=== PATIENT | male | born 1955 | race African-American/Black ===

== ENCOUNTER 2018-05-26 16:54 | Emergency (ER) | payer MEDICAID ==
[~2018-05-26] VITALS: Ht 167.6 cm; Wt 94.1 kg
[~2018-05-26 16:54] MED LIST: AMLO-512 PO; ASPI-556 PO; ATOR20TA86 PO; CLON.2 PO; DOXA2TAB PO; FURO20 PO; GABA-533 PO; MELO-107 PO; OMEP20 PO; PRED20 PO
[2018-05-26] MEDS ORDERED: CHL25 PO (17:03)
[2018-05-26 18:19] LABS: APPEARANCE,URINE CLEAR (CLEAR); BILIRUBIN,URINE NEGATIVE (NEGATIVE); GLUCOSE, URINE (UA) NEGATIVE (NEGATIVE); KETONES,URINE NEGATIVE (NEGATIVE); LEUKOCYTE ESTERASE ,URINE NEGATIVE (NEGATIVE); NITRATE,URINE NEGATIVE (NEGATIVE); OCCULT BLOOD,URINE NEGATIVE (NEGATIVE); PROTEIN,URINE NEGATIVE (NEGATIVE); UROBILINOGEN,URINE 0.2 mg/dL (<=1.0)
[2018-05-26 19:12] VITALS: BP 130/73
== END 2018-05-26 19:13 | disposition home or self-care (01) ==
LOC: EMS 16:59
DX: R20.2 Paresthesia of skin (principal); M79.605 Pain in left leg; M79.604 Pain in right leg; M79.89 Other specified soft tissue disorders; I10 Essential (primary) hypertension; F17.210 Nicotine dependence, cigarettes, uncomplicated; Z88.0 Allergy status to penicillin; Z88.8 Allergy status to other drugs, medicaments and biological substances; Z91.018 Allergy to other foods
CPT/HCPCS: 93970; 99285

== ENCOUNTER 2019-07-04 22:36 | Emergency (ER) | payer MEDICAID ==
[~2019-07-04] VITALS: Ht 167.6 cm; Wt 95.5 kg
[~2019-07-04 22:36] MED LIST changes: -AMLO-512 PO; +AMLO10TA7 PO; +CHL25 PO
[2019-07-05] MEDS ORDERED: PredniSONE 20 MG TABLET PO ONE
[2019-07-05] MEDS ORDERED: IPRATROPIUM BROMIDE 0.5 MG/2.5 ML NEB SOLUTION NEB ONE
[2019-07-05] MEDS ORDERED: ALBUTEROL SULFATE 2.5 MG/0.5 ML NEB SOLUTION NEB ONE
[2019-07-05 00:25] LABS: BASOPHILS % (AUTO) 1.1 % (0.0-2.0); EOSINOPHILS % (AUTO) 1.7 % (1.0-6.0); HEMATOCRIT 41.9 % (41-53); HEMOGLOBIN 13.8 g/dL (13.5-17.5); LYMPHOCYTES # (AUTO) 3.5 K/uL (1.0-4.8); LYMPHOCYTES % (AUTO) 53.8 % (22.0-44.0); MEAN CORPUSCULAR HEMOGLOBIN 31.5 pg (26.0-34.0); MEAN CORPUSCULAR HGB CONC 32.9 G/dL (31.0-37.0); MEAN CORPUSCULAR VOLUME 96 fL (80-100); MONOCYTES # (AUTO) 0.4 K/uL (0.1-1.0); MONOCYTES % (AUTO) 6.8 % (2.0-9.0); NEUTROPHILS # (AUTO) 2.4 K/uL (1.8-7.7); NEUTROPHILS % (AUTO) 36.6 % (40.0-70.0); PLATELET COUNT (AUTO) 255 K/uL (150-450); RED BLOOD CELL COUNT(AUTO) 4.38 MIL/uL (4.50-5.90)
[2019-07-05 00:30] LABS: ANION GAP 12 mmol/L (8-16); CALCIUM, TOTAL 9.9 mg/dL (8.8-10.5); CARBON DIOXIDE 31 mmol/L (22-29); CHLORIDE 100 mmol/L (98-107); CREATININE 1.11 mg/dL (0.60-1.30); GLOMERULAR FILTR. RATE CALC > 60 mL/min (>60); GLUCOSE,RANDOM 90 mg/dL (70-110); POTASSIUM 3.3 mmol/L (3.5-5.1); SODIUM SERUM 143 mmol/L (136-145); UREA NITROGEN, BLOOD 8 mg/dL (7-18)
[2019-07-05 00:37] LABS: ALANINE AMINOTRANSFERASE 23 U/L (12-78); ALBUMIN 4.1 g/dL (3.4-5.0); ALKALINE PHOSPHATASE 95 U/L (46-116); ASPARTATE AMINOTRANSFERASE 24 U/L (15-37); BILIRUBIN,TOTAL 0.3 mg/dL (0.1-1.0); TOTAL PROTEIN, SERUM 8.5 g/dL (6.4-8.2)
[2019-07-05 00:43] LABS: B-TYPE NATRIURETIC PEPTIDE 31 pg/mL (0-100)
[2019-07-05] MEDS ORDERED: IOVERSOL 350 MG/ML 150 ML VIAL ONE (01:01)
[2019-07-05] MEDS ORDERED: KETOROLAC TROMETHAMINE 30 MG/ML VIAL IVP ONE (01:15)
[2019-07-05 03:37] VITALS: BP 142/88
== END 2019-07-05 03:58 | disposition home or self-care (01) ==
LOC: EMS 22:40
DX: G89.29 Other chronic pain (principal); K80.20 Calculus of gallbladder without cholecystitis without obstruction; R16.0 Hepatomegaly, not elsewhere classified; N28.1 Cyst of kidney, acquired; J45.901 Unspecified asthma with (acute) exacerbation; I10 Essential (primary) hypertension; F17.210 Nicotine dependence, cigarettes, uncomplicated; Z88.0 Allergy status to penicillin; Z88.8 Allergy status to other drugs, medicaments and biological substances; Z91.018 Allergy to other foods; Z79.899 Other long term (current) drug therapy; Z79.82 Long term (current) use of aspirin
CPT/HCPCS: 36415; 71045; 71275; 80053; 83880; 85025; 85379; 93970; 94640; 96374; 99284; J1885; J7512; Q9967

== ENCOUNTER 2019-07-05 10:38 | Inpatient (IN) | payer MEDICAID ==
[~2019-07-05] VITALS: Ht 167.6 cm; Wt 97.4 kg
[2019-07-05 11:15] LABS: GLUCOSE,POINT OF CARE 126 MG/DL (70-110)
[2019-07-05] MEDS ORDERED: ALBUTEROL SULFATE 5 MG/ML 20 ML NEB SOLN [BULK] NEB ONE (11:15)
[2019-07-05] MEDS ORDERED: IPRATROPIUM BROMIDE 0.5 MG/2.5 ML NEB SOLUTION NEB ONE (11:15)
[2019-07-05 11:45] LABS: ANION GAP 17 mmol/L (8-16); BASOPHILS % (AUTO) 0.2 % (0.0-2.0); CALCIUM, TOTAL 10.4 mg/dL (8.8-10.5); CARBON DIOXIDE 27 mmol/L (22-29); CHLORIDE 96 mmol/L (98-107); CREATININE 1.03 mg/dL (0.60-1.30); EOSINOPHILS % (AUTO) 0 % (1.0-6.0); GLOMERULAR FILTR. RATE CALC > 60 mL/min (>60); GLUCOSE,RANDOM 113 mg/dL (70-110); HEMATOCRIT 42.4 % (41-53); HEMOGLOBIN 14.2 g/dL (13.5-17.5); LYMPHOCYTES % (AUTO) 26.2 % (22.0-44.0); MEAN CORPUSCULAR HEMOGLOBIN 32.2 pg (26.0-34.0); MEAN CORPUSCULAR HGB CONC 33.5 G/dL (31.0-37.0); MEAN CORPUSCULAR VOLUME 96 fL (80-100); MONOCYTES # (AUTO) 0.2 K/uL (0.1-1.0); MONOCYTES % (AUTO) 4.9 % (2.0-9.0); NEUTROPHILS # (AUTO) 2.6 K/uL (1.8-7.7); NEUTROPHILS % (AUTO) 68.7 % (40.0-70.0); PLATELET COUNT (AUTO) 245 K/uL (150-450); POTASSIUM 3.2 mmol/L (3.5-5.1); RED BLOOD CELL COUNT(AUTO) 4.42 MIL/uL (4.50-5.90); RED CELL DISTRIBUTION WIDTH 15.6 % (11.5-14.5); SODIUM SERUM 140 mmol/L (136-145); UREA NITROGEN, BLOOD 5 mg/dL (7-18)
[2019-07-05] MEDS ORDERED: ONDANSETRON HCL 4 MG/2 ML VIAL ONE (11:49)
[2019-07-05] MEDS ORDERED: MORPHINE SULFATE 4 MG/ML SYRINGE ONE (11:50)
[2019-07-05] MEDS ORDERED: MORPHINE SULFATE 4 MG/ML SYRINGE IVP ONE (12:00)
[2019-07-05] MEDS ORDERED: ONDANSETRON HCL 4 MG/2 ML VIAL IVP ONE (12:00)
[2019-07-05 12:07] LABS: B-TYPE NATRIURETIC PEPTIDE 59 pg/mL (0-100)
[2019-07-05 12:13] LABS: ALANINE AMINOTRANSFERASE 22 U/L (12-78); ALBUMIN 4.2 g/dL (3.4-5.0); ALKALINE PHOSPHATASE 100 U/L (46-116); ASPARTATE AMINOTRANSFERASE 22 U/L (15-37); BILIRUBIN,TOTAL 0.5 mg/dL (0.1-1.0); CREATINE KINASE, TOTAL ONLY 206 U/L (39-308); LIPASE 56 U/L (73-393); TOTAL PROTEIN, SERUM 8.8 g/dL (6.4-8.2)
[2019-07-05] MEDS ORDERED: NITROGLYCERIN 0.4 MG SUBLINGUAL TABLET #25 SL ONE (12:30)
[2019-07-05] MEDS ORDERED: ASPIRIN 325 MG TABLET PO SCH (12:45)
[2019-07-05] MEDS ORDERED: ACETAMINOPHEN 325 MG TABLET PO PRN (12:45)
[2019-07-05] MEDS ORDERED: METOPROLOL TARTRATE 25 MG TABLET PO SCH (12:45)
[2019-07-05] MEDS ORDERED: POTASSIUM CHLORIDE 10% 40 MEQ/30 ML LIQUID UDCUP PO ONE (12:45)
[2019-07-05] MEDS ORDERED: ALBUTEROL SULFATE 2.5 MG/0.5 ML NEB SOLUTION NEB PRN (12:45)
[2019-07-05 13:15] LABS: APPEARANCE,URINE CLEAR (CLEAR); BILIRUBIN,URINE NEGATIVE (NEGATIVE); GLUCOSE, URINE (UA) NEGATIVE (NEGATIVE); KETONES,URINE NEGATIVE (NEGATIVE); LEUKOCYTE ESTERASE ,URINE NEGATIVE (NEGATIVE); NITRATE,URINE NEGATIVE (NEGATIVE); OCCULT BLOOD,URINE NEGATIVE (NEGATIVE); PROTEIN,URINE SEE CONFIRM (NEGATIVE); UROBILINOGEN,URINE 0.2 mg/dL (<=1.0)
[2019-07-05 13:16] LABS: AMPHET/METH SCREEN,URINE NEGATIVE (NEGATIVE); BARBITURATE SCREEN, URINE NEGATIVE (NEGATIVE); BENZODIAZEPINES SCREEN,URINE NEGATIVE (NEGATIVE); CANNABINOID SCREEN,URINE POSITIVE (NEGATIVE); COCAINE SCREEN,URINE NEGATIVE (NEGATIVE); METHADONE SCREEN, URINE NEGATIVE (NEGATIVE); OPIATE SCREEN,URINE POSITIVE (NEGATIVE); PHENCYCLIDINE SCREEN,URINE NEGATIVE (NEGATIVE)
[2019-07-05] MEDS: ATORVASTATIN CALCIUM 20 MG TABLET PO SCH (13:20)
[2019-07-05 13:26] LABS: BACTERIA,URINE None Seen /HPF (None Seen); RBC,URINE 0-2 /HPF (0-2); SQUAMOUS EPITHELIAL CELL,UR Few /LPF (None Seen); SULFOSALICYLIC ACID,URINE 3+ (Negative); WBC,URINE None Seen /HPF (0-5)
[2019-07-05] MEDS ORDERED: FONDAPARINUX SODIUM 2.5 MG/0.5 ML SYRINGE SQ SCH (13:30)
[2019-07-05 15:54] VITALS: BP 155/91
[2019-07-05] MEDS ORDERED: POTASSIUM CHL 10 MEQ/WATER 50 ML IV PRN (16:00)
[2019-07-05] MEDS ORDERED: POTASSIUM CHLORIDE 20 MEQ ER TABLET PO PRN (16:00)
[2019-07-05] MEDS ORDERED: HEPARIN SODIUM,PORCINE 5,000 UNITS/ML VIAL SQ SCH (16:00)
[2019-07-05] MEDS ORDERED: NITROGLYCERIN 0.4 MG SUBLINGUAL TABLET #25 SL PRN (17:15)
[2019-07-05 20:16] VITALS: BP 145/84
[2019-07-05 20:20] VITALS: BP 148/84
[2019-07-05] MEDS: DOCUSATE SODIUM 100 MG CAPSULE PO SCH (21:10)
[2019-07-05] MEDS: OxyCODONE HCL/ACETAMINOPHEN 5-325 MG TABLET PO PRN (21:10)
[2019-07-05] MEDS: METOPROLOL TARTRATE 25 MG TABLET PO SCH (21:11)
[2019-07-06] VITALS (13 sets, daily range): BP systolic 131–185; BP diastolic 72–105
[2019-07-06] MEDS: FAMOTIDINE 20 MG TABLET PO SCH ×2 (09:00→13:48)
[2019-07-06] MEDS: METOPROLOL TARTRATE 25 MG TABLET PO SCH ×3 (09:00→21:48)
[2019-07-06] MEDS: DOCUSATE SODIUM 100 MG CAPSULE PO SCH ×3 (09:00→21:48)
[2019-07-06] MEDS: ASPIRIN 81 MG CHEWABLE TABLET PO SCH (09:00)
[2019-07-06] MEDS: ATORVASTATIN CALCIUM 20 MG TABLET PO SCH ×2 (09:00→13:48)
[2019-07-06] MEDS: FONDAPARINUX SODIUM 7.5 MG/0.6 ML SYRINGE SQ SCH (09:00)
[2019-07-06] MEDS ORDERED: VERAPAMIL HCL 2.5 MG/ML 2 ML VIAL ONE (10:42)
[2019-07-06] MEDS ORDERED: HEPARIN SODIUM 1000 UNITS/NS 1,000 ML ONE (10:43)
[2019-07-06] MEDS ORDERED: LIDOCAINE/PF 1% 30 ML VIAL ONE (10:43)
[2019-07-06] MEDS ORDERED: IOHEXOL 300 MG/ML 150 ML VIAL ONE (10:43)
[2019-07-06] MEDS ORDERED: NITROGLYCERIN 50 MG/D5% WATER 250 ML ONE (10:43)
[2019-07-06] MEDS ORDERED: SODIUM BICARBONATE 50 MEQ/50 ML VIAL ONE (10:43)
[2019-07-06] MEDS ORDERED: FentaNYL CITRATE-PF 100 MCG/2 ML VIAL ONE (11:22)
[2019-07-06] MEDS ORDERED: MIDAZOLAM HCL 2 MG/2 ML VIAL ONE (11:22)
[2019-07-06] MEDS ORDERED: SODIUM CHLORIDE 0.9% 500 ML IV ONE (11:43)
[2019-07-06] MEDS ORDERED: HEPARIN SODIUM 1000 UNITS/NS 1,000 ML IARTER ONE (11:43)
[2019-07-06] MEDS ORDERED: LIDOCAINE 1% 30 ML/SOD BICARB 8.4% 4 ML SQ ONE (11:45)
[2019-07-06] MEDS ORDERED: VERAPAMIL HCL 2.5 MG/ML 2 ML VIAL IARTER ONE (11:45)
[2019-07-06] MEDS ORDERED: MIDAZOLAM HCL 2 MG/2 ML VIAL IVP ONE (11:45)
[2019-07-06] MEDS ORDERED: FentaNYL CITRATE-PF 100 MCG/2 ML VIAL IVP ONE (11:45)
[2019-07-06] MEDS ORDERED: NITROGLYCERIN/D5W 50 MG/250 ML IV BOTTLE IARTER ONE (11:45)
[2019-07-06] MEDS ORDERED: IOHEXOL 300 MG/ML 150 ML VIAL IARTER ONE (11:45)
[2019-07-06] MEDS ORDERED: POTASSIUM CHL 10 MEQ/WATER 50 ML IV PRN (12:00)
[2019-07-06] MEDS ORDERED: HEPARIN SODIUM,PORCINE 5,000 UNITS/ML VIAL IVP ONE (12:00)
[2019-07-06] MEDS ORDERED: POTASSIUM CHLORIDE 20 MEQ ER TABLET PO PRN (12:00)
[2019-07-06] MEDS ORDERED: IOHEXOL 300 MG/ML 100 ML VIAL IARTER ONE (12:00)
[2019-07-06] MEDS ORDERED: IOHEXOL 300 MG/ML 50 ML VIAL ONE (12:12)
[2019-07-06] MEDS ORDERED: NITROGLYCERIN/D5W 50 MG/250 ML IV BOTTLE ICOR ONE (12:15)
[2019-07-06] MEDS: OxyCODONE HCL/ACETAMINOPHEN 5-325 MG TABLET PO PRN ×2 (13:48→21:48)
[2019-07-07 03:58] VITALS: BP 139/76
[2019-07-07 07:11] VITALS: BP 160/91
[2019-07-07] MEDS ORDERED: LIDOCAINE/PF 1% 30 ML VIAL ONE (07:28)
[2019-07-07] MEDS ORDERED: SODIUM BICARBONATE 50 MEQ/50 ML VIAL ONE (07:29)
[2019-07-07] MEDS ORDERED: IOHEXOL 300 MG/ML 150 ML VIAL ONE (07:29)
[2019-07-07] MEDS ORDERED: HEPARIN SODIUM 1000 UNITS/NS 500 ML ONE (07:29)
[2019-07-07] MEDS ORDERED: ASPIRIN 325 MG TABLET PO ONE (08:45)
[2019-07-07] MEDS ORDERED: TICAGRELOR 90 MG TABLET PO ONE (08:45)
[2019-07-07] MEDS: METOPROLOL TARTRATE 25 MG TABLET PO SCH ×2 (11:19→21:31)
[2019-07-07] MEDS: ATORVASTATIN CALCIUM 20 MG TABLET PO SCH (11:19)
[2019-07-07] MEDS: DOCUSATE SODIUM 100 MG CAPSULE PO SCH ×2 (11:19→21:32)
[2019-07-07] MEDS: FAMOTIDINE 20 MG TABLET PO SCH (11:19)
[2019-07-07] MEDS: ASPIRIN 81 MG CHEWABLE TABLET PO SCH (11:19)
[2019-07-07] MEDS: FONDAPARINUX SODIUM 7.5 MG/0.6 ML SYRINGE SQ SCH (11:20)
[2019-07-07 11:25] VITALS: BP 166/108
[2019-07-07] MEDS: OxyCODONE HCL/ACETAMINOPHEN 5-325 MG TABLET PO PRN ×2 (11:33→19:42)
[2019-07-07 15:15] VITALS: BP 135/82
[2019-07-07 20:51] VITALS: BP 144/94
[2019-07-07] MEDS: MORPHINE SULFATE 2 MG/ML SYRINGE IVP PRN (21:31)
[2019-07-07 23:03] VITALS: BP 139/99
[2019-07-08] VITALS (21 sets, daily range): BP systolic 113–189; BP diastolic 58–114
[2019-07-08] MEDS: ATORVASTATIN CALCIUM 20 MG TABLET PO SCH (08:37)
[2019-07-08] MEDS: ASPIRIN 81 MG CHEWABLE TABLET PO SCH (08:37)
[2019-07-08] MEDS: METOPROLOL TARTRATE 25 MG TABLET PO SCH (08:37)
[2019-07-08] MEDS: DOCUSATE SODIUM 100 MG CAPSULE PO SCH ×2 (08:38→19:57)
[2019-07-08] MEDS: FONDAPARINUX SODIUM 7.5 MG/0.6 ML SYRINGE SQ SCH (08:38)
[2019-07-08] MEDS: FAMOTIDINE 20 MG TABLET PO SCH (08:38)
[2019-07-08] MEDS ORDERED: LIDOCAINE/PF 1% 30 ML VIAL ONE (09:20)
[2019-07-08] MEDS ORDERED: HEPARIN SODIUM 1000 UNITS/NS 1,000 ML ONE (09:20)
[2019-07-08] MEDS ORDERED: SODIUM BICARBONATE 50 MEQ/50 ML VIAL ONE (09:20)
[2019-07-08] MEDS ORDERED: IOHEXOL 300 MG/ML 150 ML VIAL ONE (09:20)
[2019-07-08] MEDS ORDERED: TICAGRELOR 90 MG TABLET ONE (09:55)
[2019-07-08] MEDS ORDERED: NITROGLYCERIN 50 MG/D5% WATER 250 ML ONE (09:58)
[2019-07-08] MEDS ORDERED: IOHEXOL 300 MG/ML 50 ML VIAL ONE (09:58)
[2019-07-08] MEDS ORDERED: VERAPAMIL HCL 2.5 MG/ML 2 ML VIAL ONE (09:58)
[2019-07-08] MEDS ORDERED: FentaNYL CITRATE-PF 100 MCG/2 ML VIAL ONE (10:04)
[2019-07-08] MEDS ORDERED: MIDAZOLAM HCL 2 MG/2 ML VIAL ONE ×2 (10:05→11:17)
[2019-07-08] MEDS ORDERED: HEPARIN SODIUM 1000 UNITS/NS 1,000 ML IARTER ONE (10:14)
[2019-07-08] MEDS ORDERED: SODIUM CHLORIDE 0.9% 500 ML IV ONE (10:14)
[2019-07-08] MEDS ORDERED: LIDOCAINE 1% 30 ML/SOD BICARB 8.4% 4 ML SQ ONE (10:15)
[2019-07-08] MEDS ORDERED: HEPARIN SODIUM,PORCINE 5,000 UNITS/ML VIAL IVP ONE ×3 (10:15→11:00)
[2019-07-08] MEDS ORDERED: IOHEXOL 300 MG/ML 150 ML VIAL IARTER ONE (10:15)
[2019-07-08] MEDS ORDERED: TICAGRELOR 90 MG TABLET PO ONE (10:15)
[2019-07-08] MEDS ORDERED: IOHEXOL 300 MG/ML 50 ML VIAL IARTER ONE (10:15)
[2019-07-08] MEDS ORDERED: FentaNYL CITRATE-PF 100 MCG/2 ML VIAL IVP ONE ×2 (10:30)
[2019-07-08] MEDS ORDERED: MIDAZOLAM HCL 2 MG/2 ML VIAL IVP ONE ×3 (10:30→11:15)
[2019-07-08] MEDS ORDERED: IOHEXOL 300 MG/ML 100 ML VIAL ONE (10:37)
[2019-07-08] MEDS ORDERED: IOHEXOL 300 MG/ML 100 ML VIAL IARTER ONE (10:45)
[2019-07-08] MEDS ORDERED: LABETALOL HCL 5 MG/ML 20 ML VIAL IVP ONE ×2 (10:53→11:00)
[2019-07-08] MEDS ORDERED: NITROGLYCERIN/D5W 50 MG/250 ML IV BOTTLE ICOR ONE ×2 (11:00→11:15)
[2019-07-08] MEDS ORDERED: VERAPAMIL HCL 2.5 MG/ML 2 ML VIAL ICOR ONE ×2 (11:00→11:15)
[2019-07-08] MEDS ORDERED: MORPHINE SULFATE 2 MG/ML SYRINGE ONE (12:14)
[2019-07-08] MEDS: MORPHINE SULFATE 2 MG/ML SYRINGE IVP PRN ×2 (12:15→19:57)
[2019-07-08] MEDS: OxyCODONE HCL/ACETAMINOPHEN 5-325 MG TABLET PO PRN ×2 (14:15→23:17)
[2019-07-08] MEDS: CloNIDine HCL 0.2 MG TABLET PO SCH ×2 (15:45→21:56)
[2019-07-08] MEDS: GABAPENTIN 400 MG CAPSULE PO SCH ×2 (15:50→19:57)
[2019-07-08] MEDS ORDERED: LABETALOL HCL 5 MG/ML 20 ML VIAL IVP PRN (16:00)
[2019-07-08] MEDS: TICAGRELOR 90 MG TABLET PO SCH (19:56)
[2019-07-08] MEDS: ATORVASTATIN CALCIUM 40 MG TABLET PO SCH (19:57)
[2019-07-08] MEDS: DOXAZOSIN MESYLATE 2 MG TABLET PO SCH (19:57)
[2019-07-08] MEDS ORDERED: ATORVASTATIN CALCIUM 20 MG TABLET PO SCH (21:00)
[2019-07-08] MEDS: METOPROLOL TARTRATE 50 MG TABLET PO SCH (21:00)
[2019-07-09] VITALS (7 sets, daily range): BP systolic 114–149; BP diastolic 44–82
[2019-07-09] MEDS: DOCUSATE SODIUM 100 MG CAPSULE PO SCH ×2 (09:00→21:12)
[2019-07-09] MEDS: METOPROLOL TARTRATE 50 MG TABLET PO SCH ×2 (09:00→21:12)
[2019-07-09] MEDS: FONDAPARINUX SODIUM 7.5 MG/0.6 ML SYRINGE SQ SCH (09:09)
[2019-07-09] MEDS: ASPIRIN 81 MG EC TABLET PO SCH (09:09)
[2019-07-09] MEDS: TICAGRELOR 90 MG TABLET PO SCH ×2 (09:09→21:13)
[2019-07-09] MEDS: GABAPENTIN 400 MG CAPSULE PO SCH ×3 (09:10→21:13)
[2019-07-09] MEDS: CHLORTHALIDONE 25 MG TABLET PO SCH (09:10)
[2019-07-09] MEDS: AmLODIPine BESYLATE 10 MG TABLET PO SCH (09:10)
[2019-07-09] MEDS: FUROSEMIDE 20 MG TABLET PO SCH (09:10)
[2019-07-09] MEDS: OMEPRAZOLE 20 MG CAPSULE PO SCH (09:13)
[2019-07-09] MEDS: FAMOTIDINE 20 MG TABLET PO SCH (09:13)
[2019-07-09] MEDS: CloNIDine HCL 0.2 MG TABLET PO SCH ×3 (09:13→21:13)
[2019-07-09] MEDS: MELOXICAM 7.5 MG TABLET PO SCH (09:13)
[2019-07-09] MEDS: MORPHINE SULFATE 2 MG/ML SYRINGE IVP PRN (11:18)
[2019-07-09] MEDS: MAGNESIUM HYDROXIDE SUSPENSION 30 ML UDCUP PO PRN ×2 (13:18→21:15)
[2019-07-09] MEDS ORDERED: ChlorproMAZINE HCL 10 MG TABLET PO PRN (14:45)
[2019-07-09] MEDS: ATORVASTATIN CALCIUM 40 MG TABLET PO SCH (21:13)
[2019-07-09] MEDS: DOXAZOSIN MESYLATE 2 MG TABLET PO SCH (21:13)
[2019-07-10] MEDS: OxyCODONE HCL/ACETAMINOPHEN 5-325 MG TABLET PO PRN ×2 (03:24→18:05)
[2019-07-10 04:21] VITALS: BP 114/59
[2019-07-10 08:20] VITALS: BP 110/55
[2019-07-10 08:45] LABS: BASOPHILS % (AUTO) 1.5 % (0.0-2.0); HEMATOCRIT 37.9 % (41-53); HEMOGLOBIN 12.4 g/dL (13.5-17.5); LYMPHOCYTES # (AUTO) 1.9 K/uL (1.0-4.8); LYMPHOCYTES % (AUTO) 37.7 % (22.0-44.0); MEAN CORPUSCULAR HEMOGLOBIN 32.2 pg (26.0-34.0); MEAN CORPUSCULAR HGB CONC 32.7 G/dL (31.0-37.0); MEAN CORPUSCULAR VOLUME 98 fL (80-100); MONOCYTES # (AUTO) 0.5 K/uL (0.1-1.0); MONOCYTES % (AUTO) 10.8 % (2.0-9.0); NEUTROPHILS # (AUTO) 2.3 K/uL (1.8-7.7); PLATELET COUNT (AUTO) 143 K/uL (150-450); RED BLOOD CELL COUNT(AUTO) 3.85 MIL/uL (4.50-5.90); RED CELL DISTRIBUTION WIDTH 15.3 % (11.5-14.5)
[2019-07-10] MEDS: FONDAPARINUX SODIUM 7.5 MG/0.6 ML SYRINGE SQ SCH (08:51)
[2019-07-10] MEDS: TICAGRELOR 90 MG TABLET PO SCH ×2 (08:51→20:33)
[2019-07-10] MEDS: ASPIRIN 81 MG EC TABLET PO SCH (08:51)
[2019-07-10] MEDS: FUROSEMIDE 20 MG TABLET PO SCH (08:51)
[2019-07-10] MEDS: DOCUSATE SODIUM 100 MG CAPSULE PO SCH ×2 (08:51→20:34)
[2019-07-10] MEDS: FAMOTIDINE 20 MG TABLET PO SCH (08:51)
[2019-07-10] MEDS: OMEPRAZOLE 20 MG CAPSULE PO SCH (08:52)
[2019-07-10] MEDS: MELOXICAM 7.5 MG TABLET PO SCH (08:52)
[2019-07-10] MEDS: CHLORTHALIDONE 25 MG TABLET PO SCH (08:52)
[2019-07-10] MEDS: GABAPENTIN 400 MG CAPSULE PO SCH ×3 (08:52→20:34)
[2019-07-10 08:56] LABS: ANION GAP 6 mmol/L (8-16); CALCIUM, TOTAL 10.2 mg/dL (8.8-10.5); CARBON DIOXIDE 30 mmol/L (22-29); CHLORIDE 98 mmol/L (98-107); CREATININE 1.32 mg/dL (0.60-1.30); GLOMERULAR FILTR. RATE CALC > 60 mL/min (>60); GLUCOSE,RANDOM 101 mg/dL (70-110); SODIUM SERUM 134 mmol/L (136-145); UREA NITROGEN, BLOOD 26 mg/dL (7-18)
[2019-07-10] MEDS: AmLODIPine BESYLATE 10 MG TABLET PO SCH (09:00)
[2019-07-10] MEDS: METOPROLOL TARTRATE 50 MG TABLET PO SCH ×2 (09:00→20:34)
[2019-07-10] MEDS: CloNIDine HCL 0.2 MG TABLET PO SCH ×3 (09:00→20:33)
[2019-07-10 10:59] LABS: ABG CARBOXYHEMOGLOBIN 0.1 % (0.0-1.5); ABG HCO3 26.9 mmol/L (22.0-26.0); ABG METHEMOGLOBIN 0.2 % (0.0-1.5); ABG OXYGEN CONTENT 17.9 mL/dL (15.0-23.0); ABG OXYGEN SATURATION 97.2 % (95.0-98.0); ABG OXYHEMOGLOBIN 96.9 % (94.0-100.0); ABG PCO2 41 mmHg (35-45); ABG PH 7.441 (7.35-7.450); ABG TOTAL HEMOGLOBIN 13.1 G/dL (12.0-18.0); O2 DEVICE,BLOOD GAS CANNULA (ROOM AIR); PO2, ARTERIAL BG 92.8 mmHg (79.0-87.0); SITE, BLOOD GAS RT RADIAL; SOURCE, BLOOD GAS ARTERIAL
[2019-07-10 11:33] VITALS: BP 105/72
[2019-07-10 16:15] VITALS: BP 131/78
[2019-07-10 20:13] VITALS: BP 132/81
[2019-07-10] MEDS: DOXAZOSIN MESYLATE 2 MG TABLET PO SCH (20:33)
[2019-07-10] MEDS: ATORVASTATIN CALCIUM 40 MG TABLET PO SCH (20:34)
[2019-07-10 23:49] VITALS: BP 131/64
[2019-07-11 03:31] VITALS: BP 133/84
[2019-07-11] MEDS: OxyCODONE HCL/ACETAMINOPHEN 5-325 MG TABLET PO PRN (03:56)
[2019-07-11 05:01] VITALS: BP 107/60
[2019-07-11 07:15] VITALS: BP 119/67
[2019-07-11] MEDS: TICAGRELOR 90 MG TABLET PO SCH (08:45)
[2019-07-11] MEDS: FUROSEMIDE 20 MG TABLET PO SCH (08:45)
[2019-07-11] MEDS: FONDAPARINUX SODIUM 7.5 MG/0.6 ML SYRINGE SQ SCH (08:46)
[2019-07-11] MEDS: OMEPRAZOLE 20 MG CAPSULE PO SCH (08:46)
[2019-07-11] MEDS: ASPIRIN 81 MG EC TABLET PO SCH (08:46)
[2019-07-11] MEDS: FAMOTIDINE 20 MG TABLET PO SCH (08:46)
[2019-07-11] MEDS: GABAPENTIN 400 MG CAPSULE PO SCH (08:47)
[2019-07-11] MEDS: MELOXICAM 7.5 MG TABLET PO SCH (08:47)
[2019-07-11] MEDS: CHLORTHALIDONE 25 MG TABLET PO SCH (08:47)
[2019-07-11] MEDS: DOCUSATE SODIUM 100 MG CAPSULE PO SCH (08:47)
[2019-07-11] MEDS: MORPHINE SULFATE 2 MG/ML SYRINGE IVP PRN (08:50)
[2019-07-11] MEDS: CloNIDine HCL 0.2 MG TABLET PO SCH (09:00)
[2019-07-11] MEDS: AmLODIPine BESYLATE 10 MG TABLET PO SCH (09:00)
[2019-07-11] MEDS: METOPROLOL TARTRATE 50 MG TABLET PO SCH (09:00)
[2019-07-11 11:20] VITALS: BP 132/64
[2019-07-11 15:41] VITALS: BP 145/89
[2019-07-11] MEDS ORDERED: GABA-533 PO (16:11)
[2019-07-11] MEDS ORDERED: METO50 PO (16:12)
[2019-07-11] MEDS ORDERED: OMEP20 PO (16:13)
[2019-07-11] MEDS ORDERED: TICA90TA PO (16:13)
[2019-07-11] MEDS ORDERED: ADV250 IH (16:54)
== END 2019-07-11 17:10 | disposition home or self-care (01) | DRG 174 ==
LOC: EMS 10:40 → 5S 14:50 → ICU 07-08 11:48 → 5S 07-09 23:00
PROVIDERS: ADMIT Internal Medicine; ATTEND Internal Medicine
PROC: B2111ZZ Fluoroscopy of Multiple Coronary Arteries using Low Osmolar Contrast (ICD-10-PCS; principal; 2019-07-06)
PROC: B2151ZZ Fluoroscopy of Left Heart using Low Osmolar Contrast (ICD-10-PCS; 2019-07-06)
PROC: 4A023N7 Measurement of Cardiac Sampling and Pressure, Left Heart, Percutaneous Approach (ICD-10-PCS; 2019-07-06)
PROC: 027035Z Dilation of Coronary Artery, One Artery with Two Drug-eluting Intraluminal Devices, Percutaneous Approach (ICD-10-PCS; 2019-07-08)
PROC: B41F1ZZ Fluoroscopy of Right Lower Extremity Arteries using Low Osmolar Contrast (ICD-10-PCS; 2019-07-08)
PROC: 4A023N7 Measurement of Cardiac Sampling and Pressure, Left Heart, Percutaneous Approach (ICD-10-PCS; 2019-07-08)
DX: I21.4 Non-ST elevation (NSTEMI) myocardial infarction (principal); R65.11 Systemic inflammatory response syndrome (SIRS) of non-infectious origin with acute organ dysfunction; I25.110 Atherosclerotic heart disease of native coronary artery with unstable angina pectoris; E78.5 Hyperlipidemia, unspecified; F17.210 Nicotine dependence, cigarettes, uncomplicated; J45.909 Unspecified asthma, uncomplicated; I10 Essential (primary) hypertension; G89.29 Other chronic pain; J44.9 Chronic obstructive pulmonary disease, unspecified; F10.20 Alcohol dependence, uncomplicated; Z79.82 Long term (current) use of aspirin; Z79.899 Other long term (current) drug therapy; Z82.49 Family history of ischemic heart disease and other diseases of the circulatory system; Z72.89 Other problems related to lifestyle; Z88.0 Allergy status to penicillin; Z88.8 Allergy status to other drugs, medicaments and biological substances; Z91.018 Allergy to other foods
CPT/HCPCS: 36600; 70450; 71250; 76700; 82805; 84132; 87081; 92920; 92928; 93005; 93306; 94644; 99291; G0378; J1644; J1652; J2250; J2270; J2405; J3010; J3490; Q9967

== ENCOUNTER 2020-11-16 13:28 | Emergency (ER) | payer MEDICAID, OTHER ==
[~2020-11-16] VITALS: Ht 167.6 cm; Wt 72.7 kg
[~2020-11-16 13:28] MED LIST changes: +AMLO-258 PO; -AMLO10TA7 PO; -CLON.2 PO; +CLON0.2T2 PO; +FLUT1DIS6 IH; +GABA-1201 PO; -GABA-533 PO; +METO50 PO; -PRED20 PO; +TICA90TA PO
[2020-11-16 13:35] VITALS: BP 158/82
[2020-11-16] MEDS ORDERED: OxyCODONE HCL/ACETAMINOPHEN 5-325 MG TABLET PO ONE (15:00)
== END 2020-11-16 15:09 | disposition home or self-care (01) ==
LOC: EMS 13:28
DX: M25.562 Pain in left knee (principal); M25.561 Pain in right knee; I10 Essential (primary) hypertension; F17.210 Nicotine dependence, cigarettes, uncomplicated

== ENCOUNTER 2021-03-16 09:30 | Emergency (ER) | payer OTHER ==
[~2021-03-16] VITALS: Ht 167.6 cm; Wt 86.4 kg
[2021-03-16] MEDS ORDERED: ACETAMINOPHEN 500 MG TABLET PO ONE (10:30)
[2021-03-16 11:10] LABS: ANION GAP 12 mmol/L (8-16); CALCIUM, TOTAL 9.8 mg/dL (8.8-10.5); CARBON DIOXIDE 31 mmol/L (22-29); CHLORIDE 94 mmol/L (98-107); CREATININE 1.15 mg/dL (0.60-1.30); GLOMERULAR FILTR. RATE CALC > 60 mL/min (>60); GLUCOSE,RANDOM 113 mg/dL (70-110); POTASSIUM 3.2 mmol/L (3.5-5.1); SODIUM SERUM 137 mmol/L (136-145); UREA NITROGEN, BLOOD 13 mg/dL (7-18)
[2021-03-16] MEDS ORDERED: KETOROLAC TROMETHAMINE 60 MG/2 ML VIAL IM ONE (11:30)
[2021-03-16] MEDS ORDERED: POTASSIUM CHLORIDE 20 MEQ ER TABLET PO ONE (11:30)
[2021-03-16 11:47] VITALS: BP 151/98
== END 2021-03-16 12:31 | disposition home or self-care (01) ==
LOC: EMS 09:35
DX: S70.01XA Contusion of right hip, initial encounter (principal); M54.2 Cervicalgia; M25.561 Pain in right knee; M25.562 Pain in left knee; G89.29 Other chronic pain; I10 Essential (primary) hypertension; F17.210 Nicotine dependence, cigarettes, uncomplicated; Z88.1 Allergy status to other antibiotic agents; Z88.0 Allergy status to penicillin; Z91.018 Allergy to other foods; Z79.82 Long term (current) use of aspirin; Z79.899 Other long term (current) drug therapy; W19.XXXA Unspecified fall, initial encounter; Y93.89 Activity, other specified; Y92.89 Other specified places as the place of occurrence of the external cause; Y99.8 Other external cause status
CPT/HCPCS: 36415; 73502; 80048; 96372; 99284; J1885

== ENCOUNTER 2021-05-09 09:28 | Emergency (ER) | payer OTHER ==
[~2021-05-09] VITALS: Ht 167.6 cm; Wt 90.9 kg
[2021-05-09] MEDS ORDERED: KETOROLAC TROMETHAMINE 30 MG/ML VIAL IM ONE (10:15)
[2021-05-09] MEDS ORDERED: ACETAMINOPHEN 500 MG TABLET PO ONE (10:15)
[2021-05-09 11:21] VITALS: BP 141/77
== END 2021-05-09 11:35 | disposition home or self-care (01) ==
LOC: EMS 09:31
DX: S70.01XA Contusion of right hip, initial encounter (principal); I10 Essential (primary) hypertension; F17.210 Nicotine dependence, cigarettes, uncomplicated; Z79.82 Long term (current) use of aspirin; Z79.899 Other long term (current) drug therapy; Z88.0 Allergy status to penicillin; Z88.8 Allergy status to other drugs, medicaments and biological substances; Z91.018 Allergy to other foods; W06.XXXA Fall from bed, initial encounter; Y93.89 Activity, other specified; Y92.89 Other specified places as the place of occurrence of the external cause; Y99.8 Other external cause status
CPT/HCPCS: 73502; 96372; 99283; J1885

== ENCOUNTER 2022-01-19 15:21 | Emergency (ER) | payer MEDICARE, OTHER ==
[~2022-01-19] VITALS: Ht 167.6 cm; Wt 90.9 kg
[2022-01-19 15:58] VITALS: BP 112/57
[2022-01-19] MEDS ORDERED: ACETAMINOPHEN 325 MG TABLET PO ONE (16:15)
[2022-01-19] MEDS ORDERED: BACL10TA PO (16:31)
[2022-01-19] MEDS ORDERED: DOXY-354 PO (17:04)
== END 2022-01-19 17:12 | disposition home or self-care (01) ==
LOC: EMS 15:22
DX: L03.115 Cellulitis of right lower limb (principal); I10 Essential (primary) hypertension; E78.00 Pure hypercholesterolemia, unspecified; Z88.0 Allergy status to penicillin; Z91.014 Allergy to mammalian meats; Z79.899 Other long term (current) drug therapy
CPT/HCPCS: 93971; 99284; Z7502; Z7610